=== PATIENT | female | born 1995 | race Caucasian/White ===

== ENCOUNTER 2017-04-06 10:17 | Emergency (ER) | payer OTHER ==
[~2017-04-06] VITALS: Ht 167.6 cm; Wt 78.0 kg
[2017-04-06 10:19] VITALS: Ht 167.6 cm; Wt 78.0 kg
[2017-04-06 11:25] LABS: URINE BLOOD (Dip) POC 3+ (NEGATIVE)
[2017-04-06] MEDS ORDERED: CEPHALEXIN 500 MG CAP PO ONE (12:00)
[2017-04-06] MEDS ORDERED: PHENAZOPYRIDINE 100 MG TAB PO ONE (12:00)
[2017-04-06] MEDS ORDERED: CEPH-443 PO (12:04)
[2017-04-06] MEDS ORDERED: PHEN-538 PO (12:04)
--- NOTE | 2017-04-06 12:09 | ERD ---
ER Documentation Chief Complaint Date/Time DATE: 04/06/17 TIME: 12:07 Chief Complaint PAINFUL URINATION,BURNING LIKE PAIN HPI This 22-year-old feel presents with dysuria for last 2 days. She has burning with urination. She denies fevers, vomiting, transmitted chest pain. She denies any localized abdominal pain. She denies a history of previous UTI. She denies a bowel discharge or bleeding patient has . ROS All systems reviewed and are negative except as per history of present illness. Medications Home Meds Active Scripts Phenazopyridine Hcl* (Pyridium*) 200 Mg Tab, 200 MG PO TID, #6 TAB Prov:SHRUTHI GRESHAM MD 04/06/17 Cephalexin* (Keflex*) 500 Mg Capsule, 500 MG PO QID for 5 Days, CAP Prov:SHRUTHI GRESHAM MD 04/06/17 Allergies Allergies: Coded Allergies: No Known Allergy (Unverified , 04/06/17) PMhx/Soc Medical and Surgical Hx: pt denies Medical Hx, pt denies Surgical Hx Hx Alcohol Use: No Hx Substance Use: No Hx Tobacco Use: No Physical Exam Vitals Vital Signs Date Time Temp Pulse Resp B/P Pulse Ox O2 Delivery O2 Flow Rate FiO2 04/06/17 10:19 99.3 91 18 127/76 98 Physical Exam Const: [] Alert, not ill-appearing. Head: Atraumatic Eyes: Normal Conjunctiva ENT: Normal External Ears, Nose and Mouth. Neck: Full range of motion..~ No meningismus. Resp: Clear to auscultation bilaterally Cardio: Regular rate and rhythm, no murmurs Abd: Soft, non tender, non distended. Normal bowel sounds Skin: No petechiae or rashes Back: No midline or flank tenderness Ext: No cyanosis, or edema Neur: Awake and alert Psych: Normal Mood and Affect Results 24 hrs Laboratory Tests Test 04/06/17 11:29 Bedside Urine pH (LAB) 7.0 Bedside Urine Protein (LAB) 1+ Bedside Urine Glucose (UA) Negative Bedside Urine Ketones (LAB) Negative Bedside Urine Blood 3+ Bedside Urine Nitrite (LAB) Negative Bedside Urine Leukocyte Esterase (L 3+ Current Medications Medications (Trade) Dose Ordered Sig/[place] Route PRN Reason Start Time Stop Time Status Last Admin Dose Admin Cephalexin (Keflex) 500 mg ONCE ONCE PO 04/06/17 12:00 04/06/17 12:01 DC 04/06/17 11:47 Phenazopyridine HCl (Pyridium) 200 mg ONCE ONCE PO 04/06/17 12:00 04/06/17 12:01 DC 04/06/17 11:47 Procedures/MDM Urine shows positive signs of infection. HCG is negative. There is blood and leukocytes present in urine. Patient signed symptoms of acute cystitis without evidence to suggest sepsis, pyonephritis, signs of PID, additional causes of abdominal pain such as appendicitis, acute abdomen. She was given Keflex and Pyridium here which treated with Keflex, Pyridium and instructions for clear fluids and return precautions.The patient was stable with no new complaints during the ER course. Clinically, there is no current evidence to suggest meningitis, sepsis, acute abdomen, pneumonia, acute coronary syndrome, pulmonary embolism, or any other emergent condition appearing to require further evaluation or hospitalization. The patient should certainly return for any new or worsening symptoms per the aftercare instructions. They should otherwise follow-up with her primary care doctor for reevaluation this week. Departure Diagnosis: Primary Impression: UTI (urinary tract infection) Urinary tract infection type: acute cystitis Hematuria presence: without hematuria Qualified Code: N30.00 - Acute cystitis without hematuria Condition: Stable Patient Instructions: Understanding Urinary Tract Infections (UTIs) Additional Instructions: Drink plenty fluids. Recheck for new or worsening symptoms with primary care doctor. SHRUTHI GRESHAM MD Apr 06, 2017 12:09
== END 2017-04-06 12:22 | disposition home or self-care (01) ==
LOC: FTE 10:17
DX: N30.00 Acute cystitis without hematuria (principal)
CPT/HCPCS: 81003; 99283